=== PATIENT | female | born 1980 | race Two or more races ===

== ENCOUNTER 2017-06-14 03:59 | Inpatient (IN) | payer MEDICAID ==
[~2017-06-14] VITALS: Ht 154.9 cm; Wt 125.6 kg
[2017-06-14] MEDS ORDERED: DEXT 5%/LR + PITOCIN 20UNITS/L 1,000 ML IV SCH (04:11)
[2017-06-14] MEDS ORDERED: NALOXONE HCL 0.4 MG/ML 1ML VIAL IM PRN (04:15)
[2017-06-14] MEDS ORDERED: LIDOCAINE HCL 1% 20ML VIAL (Pyxis) INJ INFIL SCH (04:15)
[2017-06-14] MEDS ORDERED: METHYLERGONOVINE MALEATE 0.2 MG/ML IM PRN (04:15)
[2017-06-14] MEDS ORDERED: CARBOPROST TROMETHAMINE 250 MCG/ML AMPUL IM PRN (04:15)
[2017-06-14] MEDS ORDERED: MISOPROSTOL 100MCG TABLET VG SCH (04:15)
[2017-06-14] MEDS ORDERED: BUTORPHANOL TARTRATE 2 MG/ML VIAL IV PRN (04:15)
[2017-06-14] MEDS ORDERED: PNV1TABL76 MT (04:18)
[2017-06-14] MEDS ORDERED: FOLI-43 PO (04:18)
[2017-06-14] MEDS: LACTATED RINGERS 1,000 ML IV SCH ×2 (05:00→06:27)
[2017-06-14] MEDS ORDERED: AMPICILLIN 2,000 MG in SODIUM CHLORIDE 0.9% 100 ML IV SCH (05:00)
[2017-06-14 05:47] LABS: BASOPHILS % 0.3 % (0.0-2.0); EOSINOPHILS % 0.7 % (0.0-5.0); HEMATOCRIT. 30.9 % (36.0-48.0); HEMOGLOBIN. 10.2 g/dL (12.0-16.0); MEAN CORPUSCULAR HEMOGLOBIN 25.7 pg (28.0-32.0); MEAN CORPUSCULAR VOLUME 77.8 fL (81.0-99.0); MEAN PLATELET VOLUME 10.8 fl (7.4-10.4); MONOCYTES % 4.3 % (2.0-8.0); NEUTROPHILS % 78.7 % (40.0-76.0); PLATELET 201 x1000/uL (130-400); RED BLOOD CELL COUNT 3.97 mill/uL (4.2-5.4); RED CELL DISTRIBUTION WIDTH 17.9 % (11.6-14.6)
[2017-06-14 05:57] LABS: INR 0.9; PROTHROMBIN TIME 9.7 sec (9.4-11.6)
[2017-06-14 06:12] LABS: CARBON DIOXIDE 21 mEq/L (21-32); CHLORIDE 106 mEq/L (98-107)
[2017-06-14 06:38] LABS: CLARITY URINE CLEAR (CLEAR); COLOR URINE YELLOW (YELLOW); GLUCOSE URINE NEGATIVE (NEGATIVE); KETONES URINE TRACE (NEGATIVE); LEUKOCYTE ESTERASE URINE NEGATIVE (NEGATIVE); NITRITE URINE NEGATIVE (NEGATIVE); OCCULT BLOOD URINE 1+ (NEGATIVE); PH URINE 6.5 (4.5-8.0); PROTEIN URINE NEGATIVE (NEGATIVE); SPECIFIC GRAVITY URINE 1.013 (1.005-1.030); UROBILINOGEN URINE 0.2 E.U./dL (0.2-1.0)
[2017-06-14] MEDS ORDERED: PROG50VI5 IM (07:50)
[2017-06-14 08:38] LABS: HEPATITIS B SURFACE ANTIGEN NEGATIVE; RUBELLA IGG 9.1 IU/mL (4.99-10)
[2017-06-14] MEDS ORDERED: MAGNESIUM 20 G PREMIX (L & D) 500 ML IV SCH (08:51)
[2017-06-14] MEDS ORDERED: BETAMETHASONE ACET/BETAMET 30 MG/5 ML VIAL IM NR (09:00)
[2017-06-14 10:58] LABS: *AMPHETAMINES SCREEN URINE NEGATIVE (NEGATIVE); *BARBITURATES SCREEN URINE NEGATIVE (NEGATIVE); *BENZODIAZEPINES SCREEN URINE NEGATIVE (NEGATIVE); *COCAINE SCREEN URINE NEGATIVE (NEGATIVE); CANNABINOID URINE SCREEN NEGATIVE (NEGATIVE); METHADONE URINE SCREEN NEGATIVE (NEGATIVE); OPIATES URINE SCREEN NEGATIVE (NEGATIVE); PHENCYCLIDINE URINE SCREEN NEGATIVE (NEGATIVE)
[2017-06-14] MEDS ORDERED: AMPICILLIN 1,000 MG in SODIUM CHLORIDE 0.9% 50 ML IV SCH (11:00)
[2017-06-14] MEDS ORDERED: BISACODYL 10MG SUPP PR PRN (12:00)
[2017-06-14] MEDS ORDERED: IBUPROFEN 400MG TABLET PO PRN (12:00)
[2017-06-14] MEDS ORDERED: HEMORRHOIDAL SUPP PR PRN (12:00)
[2017-06-14] MEDS ORDERED: PNEUMOCOCCAL 23-VAL P-SAC VAC 0.5 ML IM ONE (12:00)
[2017-06-14] MEDS ORDERED: BENZOCAINE/LANOLIN/ALOE VERA SPRAY TOP PRN (12:00)
[2017-06-14] MEDS ORDERED: ACETAMINOPHEN WITH CODEINE 300/30MG TABLET PO PRN (12:00)
[2017-06-14] MEDS: OXYTOCIN 20 UNITS in LACTATED RINGERS 1,000 ML IV SCH ×2 (12:27→17:37)
[2017-06-14] MEDS: ACETAMINOPHEN WITH CODEINE 300/30MG TABLET PO PRN (12:34)
[2017-06-14] MEDS ORDERED: METHYLERGONOVINE MALEATE 0.2MG TABLET PO SCH (13:00)
[2017-06-14 17:00] VITALS: BP 137/76
[2017-06-14] MEDS ORDERED: DEXTROSE 50% WATER 50ML SYRINGE IV PRN (17:15)
[2017-06-14 17:30] VITALS: BP 142/76
[2017-06-14] MEDS: SIMETHICONE 80MG TABLET CHEW PO SCH (17:45)
[2017-06-14] MEDS: MAGNESIUM/ALUMINUM HYDROXIDE/SIMETHICONE 30ML UDC PO SCH (17:45)
[2017-06-14 18:00] VITALS: BP 128/70
[2017-06-14] MEDS: INSULIN LISPRO 100 UNITS/ML SUBCUT SCH ×2 (18:06→22:47)
[2017-06-14] MEDS ORDERED: BLOOD SUGAR DIAGNOSTIC STRIP TEST SCH (19:00)
[2017-06-14 20:00] VITALS: BP 120/68
[2017-06-14] MEDS ORDERED: DOCUSATE SODIUM 100MG CAPSULE PO SCH (21:00)
[2017-06-15 06:00] VITALS: BP 119/63
[2017-06-15 06:41] LABS: BASOPHILS % 0.3 % (0.0-2.0); HEMATOCRIT. 28.2 % (36.0-48.0); HEMOGLOBIN. 9.1 g/dL (12.0-16.0); LYMPHOCYTES % 11.7 % (20.0-50.0); MEAN CORPUSCULAR HEMOGLOBIN 25.2 pg (28.0-32.0); MEAN CORPUSCULAR VOLUME 77.9 fL (81.0-99.0); MEAN PLATELET VOLUME 10.5 fl (7.4-10.4); MONOCYTES % 3.9 % (2.0-8.0); NEUTROPHILS % 84.1 % (40.0-76.0); PLATELET 207 x1000/uL (130-400); RED BLOOD CELL COUNT 3.62 mill/uL (4.2-5.4); RED CELL DISTRIBUTION WIDTH 17.9 % (11.6-14.6)
[2017-06-15 07:36] VITALS: BP 105/53
[2017-06-15] MEDS: ACETAMINOPHEN WITH CODEINE 300/30MG TABLET PO PRN (08:21)
[2017-06-15] MEDS: PRENATAL VIT/FE FUMARATE/FA TABLET PO SCH (08:21)
[2017-06-15] MEDS: MAGNESIUM/ALUMINUM HYDROXIDE/SIMETHICONE 30ML UDC PO SCH ×3 (08:21→21:08)
[2017-06-15] MEDS: SIMETHICONE 80MG TABLET CHEW PO SCH ×4 (08:22→21:08)
[2017-06-15] MEDS: FERROUS SULFATE 325MG TABLET PO SCH ×2 (13:44→17:51)
[2017-06-15 16:02] VITALS: BP 105/61
[2017-06-15 19:35] VITALS: BP 108/64
[2017-06-15] MEDS: INSULIN LISPRO 100 UNITS/ML SUBCUT SCH (20:44)
[2017-06-16 08:14] VITALS: BP 110/72
[2017-06-16] MEDS: MAGNESIUM/ALUMINUM HYDROXIDE/SIMETHICONE 30ML UDC PO SCH (09:20)
[2017-06-16] MEDS: SIMETHICONE 80MG TABLET CHEW PO SCH (09:21)
[2017-06-16] MEDS: PRENATAL VIT/FE FUMARATE/FA TABLET PO SCH (09:21)
[2017-06-16] MEDS: FERROUS SULFATE 325MG TABLET PO SCH (09:21)
== END 2017-06-16 12:45 | disposition home or self-care (01) | DRG 560 ==
LOC: OBSVTOIN 03:59 → L&D 03:59 → 7EST PP/OB 15:10
PROVIDERS: ADMIT Obstetrics & Gynecology; ATTEND Obstetrics & Gynecology
PROC: 10E0XZZ Delivery of Products of Conception, External Approach (ICD-10-PCS; principal; 2017-06-14 11:18)
DX: O77.0 Labor and delivery complicated by meconium in amniotic fluid (principal); O60.10X0 Preterm labor with preterm delivery, unspecified trimester, not applicable or unspecified; O42.919 Preterm premature rupture of membranes, unspecified as to length of time between rupture and onset of labor, unspecified trimester; Z37.0 Single live birth; Z3A.00 Weeks of gestation of pregnancy not specified
CPT/HCPCS: 36415; 80053; 80305; 81001; 82962; 84550; 85025; 85384; 85610; 85730; 86592; 86703; 86762; 86850; 86900; 87340; 99281; J0290; J0702; J1815; J2590; J3475; J7050; J7120; A4315